=== PATIENT | female | born 1980 | race Caucasian/White ===

== ENCOUNTER 2019-11-28 17:00 | Inpatient (IN) ==
[2019-11-28] MEDS ORDERED: Famotidine 20 MG/2 ML VIAL IVP ONE (17:37)
[2019-11-28] MEDS ORDERED: Metoclopramide 10 MG/2 ML VIAL IVP ONE (17:37)
[2019-11-28] MEDS ORDERED: CeFAZolin Syr 3,000MG/30 ML 3,000 MG/30 ML SYRINGE IVPB ONE (17:37)
[2019-11-28] MEDS ORDERED: Ringers Solution, Lactated 1,000 ML IVC ONE (17:37)
[2019-11-28] MEDS ORDERED: Ringers Solution, Lactated 1,000 ML IVC SCH (17:45)
[2019-11-28 18:10] LABS: Basophils % 0.3 %; Eosinophils # 0.1 K/mcL (0.0-0.6); Eosinophils % 0.7 %; Hematocrit 37.7 % (35.3-44.9); Hemoglobin 11.9 g/dL (11.5-15.4); Immature Granulocytes % 0.4 % (0-4); Lymphocytes # 1.8 K/mcL (0.6-4.6); Lymphocytes % 19.2 %; Mean Corpuscular HGB Conc 31.6 g/dL (31.6-35.5); Mean Corpuscular Hemoglobin 27.4 pg (28.0-33.3); Mean Corpuscular Volume 86.7 fL (83.0-100.0); Monocytes # 0.6 K/mcL (0.0-1.3); Monocytes % 5.8 %; Platelet Count 194 K/mcL (140-400); Red Blood Count 4.35 M/mcL (3.82-4.97); Red Cell Distribution Width 14.6 % (11.5-14.5); Segmented Neutrophils % 73.6 %; White Blood Count 9.5 K/mcL (4.3-11.1)
[2019-11-28 18:17] LABS: Amphetamine Screen,Urine Negative ng/mL (Cutoff=1000); Barbiturate Screen,Urine Negative ng/mL (Cutoff=200); Benzodiazepines Screen,Urine Negative ng/mL (Cutoff=200); Cannabinoid Screen,Urine Negative ng/mL (Cutoff = 50); Cocaine Screen,Urine Negative ng/mL (Cutoff= 300); Opiate Screen,Urine Negative ng/mL (Cutoff=300); Phencyclidine Screen,Urine Negative ng/mL (Cutoff=25); Protein/Creatinine Ratio,Urine 0.44 mg/mg (0.00-0.20)
[2019-11-28 18:30] LABS: Alanine Aminotransferase 16 Units/L (7-52); Aspartate Amino Transferase 22 Units/L (13-39); BUN/Creatinine Ratio 16 (6-26); Blood Urea Nitrogen 8 mg/dL (6-20); Lactate Dehydrogenase 196 Units/L (140-271); Uric Acid 4.6 mg/dL (2.3-7.6); eGFR For African Americans > 60 (> 60); eGFR For Non-African Americans > 60 (> 60)
[2019-11-28] MEDS ORDERED: *HR* FentaNYL (PF) 100 MCG/2 ML VIAL ONE (18:47)
[2019-11-28] MEDS ORDERED: *HR* Morphine Sulfate/PF 10 MG/10 ML AMPUL ONE (18:47)
[2019-11-28] MEDS ORDERED: *HR* Oxytocin 10 UNIT/ML VIAL IM ONE (18:49)
[2019-11-28] MEDS ORDERED: Ringers Solution, Lactated 1,000 ML ONE (18:52)
[2019-11-28] MEDS ORDERED: Oxytocin 20 units/ LR 1000 mL 20 UNIT/1,000 ML BAG IVC ONE (19:32)
[2019-11-28] MEDS ORDERED: Ondansetron 4 MG/2 ML VIAL IVP PRN (21:21)
[2019-11-28] MEDS ORDERED: *HR* Promethazine 25 MG/ML VIAL IVP PRN (21:21)
[2019-11-28] MEDS ORDERED: Acetaminophen IV 1,000 MG/100 ML INFUS..BTL IVPB ONE (21:21)
[2019-11-29] MEDS ORDERED: Simethicone 80 MG TAB.CHEW PO PRN (00:20)
[2019-11-29] MEDS ORDERED: Sennosides 8.6 MG TABLET PO PRN (00:20)
[2019-11-29] MEDS ORDERED: Metoclopramide 10 MG/2 ML VIAL IVP PRN (00:20)
[2019-11-29] MEDS ORDERED: Oxytocin 20 units/ LR 1000 mL 20 UNIT/1,000 ML BAG IVC SCH ×2 (00:20)
[2019-11-29] MEDS ORDERED: Acetaminophen 325 MG TABLET PO PRN (00:20)
[2019-11-29] MEDS ORDERED: Rho Immune Globulin 1,500 UNIT SYRINGE IM ONE (00:20)
[2019-11-29] MEDS ORDERED: Ringers Solution, Lactated 1,000 ML IVC SCH (00:20)
[2019-11-29] MEDS ORDERED: Ondansetron 4 MG/2 ML VIAL IVP PRN (00:20)
[2019-11-29] MEDS: Ibuprofen 600 MG TABLET PO PRN ×3 (04:33→18:00)
[2019-11-29 05:17] LABS: Basophils # 0.1 K/mcL (0.0-0.2); Basophils % 0.5 %; Eosinophils % 0.3 %; Hematocrit 35.8 % (35.3-44.9); Hemoglobin 11.6 g/dL (11.5-15.4); Immature Granulocytes % 0.8 % (0-4); Lymphocytes # 1.7 K/mcL (0.6-4.6); Lymphocytes % 14.2 %; Mean Corpuscular HGB Conc 32.4 g/dL (31.6-35.5); Mean Corpuscular Volume 86.5 fL (83.0-100.0); Mean Platelet Volume 12.4 fL (9.4-12.4); Monocytes # 0.8 K/mcL (0.0-1.3); Monocytes % 6.9 %; Platelet Count 133 K/mcL (140-400); Red Blood Count 4.14 M/mcL (3.82-4.97); Red Cell Distribution Width 14.9 % (11.5-14.5); Segmented Neutrophils % 77.3 %
[2019-11-29 05:34] LABS: Neutrophils # 9.3 K/mcL (1.6-8.9)
[2019-11-29 05:35] LABS: Platelet Estimate Normal (Normal)
[2019-11-29] MEDS: cephALEXin 500 MG CAPSULE PO SCH ×3 (08:26→20:23)
[2019-11-29] MEDS: Prenatal Vit/FA 1 EACH TABLET PO SCH (08:26)
[2019-11-29] MEDS ORDERED: Furosemide 20 MG TABLET PO ONE (09:44)
[2019-11-29] MEDS: *HR* OxyCODONE/APAP 5/325 TABLET PO PRN (22:03)
[2019-11-30] MEDS: Ibuprofen 600 MG TABLET PO PRN ×2 (00:08→06:54)
[2019-11-30] MEDS: *HR* OxyCODONE/APAP 5/325 TABLET PO PRN ×2 (08:24→14:00)
[2019-11-30] MEDS: Prenatal Vit/FA 1 EACH TABLET PO SCH (08:25)
[2019-11-30] MEDS: cephALEXin 500 MG CAPSULE PO SCH (08:25)
[2019-11-30 12:57] VITALS: BP 144/73
== END 2019-11-30 14:00 | disposition home or self-care (01) | DRG 784 ==
LOC: 1NENULAB 17:08 → 1NENUOBS 11-29 00:22
PROVIDERS: ADMIT Student in an Organized Health Care Education/Training Program; ATTEND Student in an Organized Health Care Education/Training Program

== ENCOUNTER 2019-12-05 11:48 | Observation (INO) ==
[2019-12-05] MEDS ORDERED: Isovue-370 500 ML BOTTLE IVP ONE (12:18)
[2019-12-05 12:36] LABS: INR 1.1
[2019-12-05 12:39] LABS: Activated Partial Thrombo Time 28.3 Seconds (26.0-36.0)
[2019-12-05 12:45] LABS: Hemoglobin 11.3 g/dL (11.5-15.4)
[2019-12-05 12:47] LABS: Basophils # 0.1 K/mcL (0.0-0.2); Basophils % 0.8 %; Eosinophils # 0.2 K/mcL (0.0-0.6); Eosinophils % 2.3 %; Hematocrit 35.6 % (35.3-44.9); Immature Granulocytes % 0.5 % (0-4); Immature Platelets 9.2 % (1.1-6.1); Lymphocytes # 1.3 K/mcL (0.6-4.6); Lymphocytes % 19.3 %; Mean Corpuscular HGB Conc 31.7 g/dL (31.6-35.5); Mean Corpuscular Volume 88.3 fL (83.0-100.0); Mean Platelet Volume 12.2 fL (9.4-12.4); Monocytes # 0.3 K/mcL (0.0-1.3); Monocytes % 5.2 %; Neutrophils # 4.7 K/mcL (1.6-8.9); Platelet Count 179 K/mcL (140-400); Red Blood Count 4.03 M/mcL (3.82-4.97); Red Cell Distribution Width 14.2 % (11.5-14.5); Segmented Neutrophils % 71.9 %; White Blood Count 6.5 K/mcL (4.3-11.1)
[2019-12-05 13:06] LABS: Alanine Aminotransferase 28 Units/L (7-52); Albumin 3.2 g/dL (3.5-5.7); Albumin/Globulin Ratio 1.1 (1.1-2.2); Alkaline Phosphatase 64 Units/L (34-104); Aspartate Amino Transferase 27 Units/L (13-39); BUN/Creatinine Ratio 20 (6-26); Bilirubin,Direct 0.1 mg/dL (0.0-0.2); Bilirubin,Indirect 0.5 mg/dL (0.0-1.0); Bilirubin,Total 0.6 mg/dL (0.3-1.0); Blood Urea Nitrogen 10 mg/dL (6-20); Calcium 8.6 mg/dL (8.6-10.3); Carbon Dioxide 24 mEq/L (23-29); Chloride 106 mEq/L (98-107); Globulin 2.9 g/dL (2.4-3.5); Glucose 122 mg/dL (70-105); Lactate Dehydrogenase 278 Units/L (140-271); Magnesium 1.7 mg/dL (1.6-2.6); Osmolality,Calculated 292 (280-300); Sodium 141 mEq/L (136-145); Total Protein 6.1 g/dL (6.4-8.9); Troponin I < 0.03 ng/mL (< 0.04); eGFR For African Americans > 60 (> 60); eGFR For Non-African Americans > 60 (> 60)
[2019-12-05 13:24] LABS: Bilirubin,Urine Negative (Negative); Blood,Urine Large (Negative); Clarity,Urine Clear (Clear); Color,Urine Yellow (Yellow); Glucose,Urine (UA) Normal (Normal); Ketones,Urine Negative (Negative); Leukocyte Esterase,Urine Trace (Negative); Nitrite,Urine Negative (Negative); Protein,Urine Negative (Neg-Trace); Specific Gravity,Urine 1.008 (1.010-1.025); Urobilinogen,Urine Normal (Normal)
[2019-12-05 13:27] LABS: Bacteria,Urine None Seen per hpf (None-Few); Hyaline Casts,Urine None Seen per lpf (None-Few); Squamous Epithelial Cell,Urine Moderate per lpf (None-Few); WBC,Urine 0-3 per hpf (0-3)
[2019-12-05] MEDS ORDERED: Furosemide 40 MG/4 ML VIAL IVP ONE (19:07)
[2019-12-05] MEDS: *HR* Heparin 5,000 UNIT/ML VIAL SQ SCH (20:56)
[2019-12-05] MEDS ORDERED: Insulin LISPRO 300 UNITS/3 ML VIAL SQ SCH (21:00)
[2019-12-05 21:53] LABS: Bilirubin,Urine Negative (Negative); Blood,Urine Large (Negative); Clarity,Urine Clear (Clear); Color,Urine Yellow (Yellow); Glucose,Urine (UA) Normal (Normal); Ketones,Urine 15 mg/dL (Negative); Leukocyte Esterase,Urine Negative (Negative); Nitrite,Urine Negative (Negative); Protein,Urine Trace mg/dL (Neg-Trace); Specific Gravity,Urine 1.027 (1.010-1.025); Urobilinogen,Urine Normal (Normal)
[2019-12-05 21:56] LABS: Bacteria,Urine None Seen per hpf (None-Few); Hyaline Casts,Urine None Seen per lpf (None-Few); Squamous Epithelial Cell,Urine Moderate per lpf (None-Few)
[2019-12-05 22:02] LABS: Protein/Creatinine Ratio,Urine 0.42 mg/mg (0.00-0.20)
[2019-12-05] MEDS ORDERED: Ibuprofen 800 MG TABLET PO PRN (23:38)
[2019-12-06 00:22] LABS: Adenovirus Not Detected (Not Detect); Bordetella Pertussis Not Detected (Not Detect); Chlamydophila pneumoniae Not Detected (Not Detect); Coronavirus 229E Not Detected (Not Detect); Coronavirus HKU1 Not Detected (Not Detect); Coronavirus NL63 Not Detected (Not Detect); Coronavirus OC43 Not Detected (Not Detect); Human Metapneumovirus Not Detected (Not Detect); Human Rhinovirus/Enterovirus Not Detected (Not Detect); Influenza A Subtype 2009 H1 Not Detected (Not Detect); Influenza B Not Detected (Not Detect); Mycoplasma pneumoniae Not Detected (Not Detect); Parainfluenza Virus 1 Not Detected (Not Detect); Parainfluenza Virus 2 Not Detected (Not Detect); Parainfluenza Virus 3 Not Detected (Not Detect); Parainfluenza Virus 4 Not Detected (Not Detect); Respiratory Syncytial Virus Not Detected (Not Detect)
[2019-12-06] MEDS: *HR* Heparin 5,000 UNIT/ML VIAL SQ SCH ×2 (05:56→13:19)
[2019-12-06 06:02] LABS: BUN/Creatinine Ratio 20 (6-26); Blood Urea Nitrogen 11 mg/dL (6-20); Calcium 8.3 mg/dL (8.6-10.3); Carbon Dioxide 25 mEq/L (23-29); Chloride 105 mEq/L (98-107); Glucose 99 mg/dL (70-105); Osmolality,Calculated 291 (280-300); Potassium 3.5 mEq/L (3.5-5.1); Sodium 141 mEq/L (136-145); Troponin I < 0.03 ng/mL (< 0.04); eGFR For African Americans > 60 (> 60); eGFR For Non-African Americans > 60 (> 60)
[2019-12-06] MEDS: Insulin LISPRO 300 UNITS/3 ML VIAL SQ SCH ×4 (08:11→15:21)
[2019-12-06] MEDS ORDERED: Aspirin Enteric Coated 81 MG Tablet PO SCH (09:00)
[2019-12-06] MEDS ORDERED: Furosemide 40 MG/4 ML VIAL IVP ONE (11:46)
[2019-12-06] MEDS ORDERED: Acetaminophen 325 MG TABLET PO PRN (13:17)
[2019-12-06 14:38] VITALS: BP 160/73
== END 2019-12-06 17:19 | disposition home or self-care (01) ==
LOC: 2ANU 11:48 → EMEROOARM 11:48 → SUATTDRO 18:28 → 2ANU 20:04
PROVIDERS: ADMIT Internal Medicine; ATTEND Internal Medicine